=== PATIENT | male | born 1980 | race Caucasian/White ===

== ENCOUNTER 2016-12-24 12:54 | Inpatient (IN) | payer OTHER ==
--- NOTE | 2016-12-24 13:59 | PDOC ---
History of Present Illness - General History Source: Patient Exam Limitations: No Limitations - History of Present Illness Initial Comments: 12/24/16 14:04 The patient is a 36 year old male with significant past medical history of EtOH abuse, alcoholic cirrhosis, recurrent pancreatitis, upper GI bleed, GERD, diabetes, seizure disorder, chronic back pain and hypothyroidism who presents to the ED with intermittent nausea and vomiting for 2 months. Patient notes that he is unable to keep anything down because he vomits it right up. Patient states that he is feeling dizzy and shakytoday. Patient notes that he drinks 1 bottle of vodka per day and his last drink was this morning. Patient states that he was recently admitted to [facility] 04/2016 for alcohol abuse and was in detox. Patient states that he did not drink for 6 months after his discharge and started drinking again in October 2016. Patient admits to being a chronic alcohol drinker. The patient denies chills, cough, SOB, and palpitations. Social History: EtOH abuse <Leanne Houser - Last Filed: 12/24/16 14:06> - General History Source: Patient, Old Records Exam Limitations: No Limitations <Melissa Ho - Last Filed: 12/24/16 15:21> - General Chief Complaint: Weakness Stated Complaint: DIZZINESS Time Seen by Provider: 12/24/16 13:37 Past History <Leanne Houser - Last Filed: 12/24/16 14:06> - Past Medical History Anemia: Yes (no med) Asthma: No Cancer: No Cardiac Disorders: No CVA: No COPD: No CHF: No Dementia: No Diabetes: Yes GI Disorders: Yes (gerd,RUPTURED ULCERS, BANDS) Disorders: No HTN: No Hypercholesterolemia: No Kidney Stones: No Liver Disease: Yes (ALCOHOLISM/ h/o cirrhosis-has had ascites in past , s/p paracentesis) Suicide Attempt (Hx): No Seizures: Yes Thyroid Disease: Yes (h/o hypothyroidism ) - Surgical History Abdominal Surgery: Yes (RUBBER BANDS TO LIVER) Appendectomy: No Cardiac Surgery: No Cholecystectomy: No Lung Surgery: No Neurologic Surgery: No Orthopedic Surgery: No - Reproductive History Testicular Surgery: No - Immunization History Immunization Up to Date: Yes - Psycho/Social/Smoking Cessation Hx Anxiety: No Suicidal Ideation: No Smoking History: Never smoked Have you smoked in the past 12 months: Yes Number of Cigarettes Smoked Daily: 4 If you are a former smoker, when did you quit?: 3 mo ago, when I stop drinking alcohol I start smoking Cigars Per Day: 0 Information on smoking cessation initiated: No 'Breaking Loose' booklet given: 01/27/16 Hx Alcohol Use: Yes (1 hour ago) Drug/Substance Use Hx: No Substance Use Type: None Hx Substance Use Treatment: Yes <Melissa Ho - Last Filed: 12/24/16 15:21> - Past Medical History Allergies/Adverse Reactions: Allergies Allergy/AdvReac Type Severity Reaction Status Date / Time No Known Allergies Allergy Verified 12/24/16 12:57 Home Medications: Ambulatory Orders Amitriptyline HCl [Elavil -] 25 mg PO HS tablet 05/04/16 Folic Acid - 1 mg PO DAILY tablet 05/04/16 Gabapentin [Neurontin -] 600 mg PO TID capsule 05/04/16 Guaifenesin [Robitussin -] 10 ml PO Q6H PRN #0 cup 05/04/16 Levothyroxine [Synthroid -] 25 mcg PO DAILY@0700 tablet 05/04/16 Nadolol [Corgard -] 20 mg PO DAILY tablet 05/04/16 Pantoprazole Sodium [Protonix -] 40 mg PO DAILY tablet.ec 05/04/16 Prednisolone Oral Solution [Orapred (15 mg/5 ml) Oral Solution -] 40 mg PO DAILY bottle 05/04/16 Thiamine HCl [Vitamin B1 -] 100 mg PO DAILY tablet 05/04/16 Review of Systems - Review of Systems Able to Perform ROS?: Yes Comments:: 12/24/16 14:04 GENERAL/CONSTITUTIONAL: No fever or chills. No weakness. HEAD, EYES, EARS, NOSE AND THROAT: No change in vision. No ear pain or discharge. No sore throat. CARDIOVASCULAR: No chest pain or shortness of breath. RESPIRATORY: No cough, wheezing, or hemoptysis. GASTROINTESTINAL: (+)nausea, (+)vomiting. No diarrhea or constipation. GENITOURINARY: No dysuria, frequency, or change in urination. MUSCULOSKELETAL: No joint or muscle swelling or pain. No neck or back pain. SKIN: No rash NEUROLOGIC: No headache, vertigo, loss of consciousness, or change in strength/ sensation. ENDOCRINE: No increased thirst. No abnormal weight change. HEMATOLOGIC/LYMPHATIC: No anemia, easy bleeding, or history of blood clots. ALLERGIC/IMMUNOLOGIC: No hives or skin allergy. <Leanne Houser - Last Filed: 12/24/16 14:06> *Physical Exam - Vital Signs Last Vital Signs Temp Pulse Resp BP Pulse Ox 98.3 F 99 H 18 133/86 95 12/24/16 12:58 12/24/16 12:58 12/24/16 12:58 12/24/16 12:58 12/24/16 12:58 - Physical Exam Comments: 12/24/16 14:05 GENERAL: Awake, alert, and fully oriented, in no acute distress. Non tremulous no tongue fasciculation HEAD: No signs of trauma EYES: (+)Icteric sclera. PERRLA, EOMI, sclera anicteric, conjunctiva clear ENT: Auricles normal inspection, hearing grossly normal, nares patent, oropharynx clear without exudates. Moist mucosa NECK: Normal ROM, supple, no lymphadenopathy, JVD, or masses LUNGS: Breath sounds equal, clear to auscultation bilaterally. No wheezes, and no crackles HEART: Regular rate and rhythm, normal S1 and S2, no murmurs, rubs or gallops ABDOMEN: (+)Mild RUQ tenderness with no guarding or rebound. Soft, normoactive bowel sounds. EXTREMITIES: Normal range of motion, no edema. No clubbing or cyanosis. No cords, erythema, or tenderness NEUROLOGICAL: Cranial nerves II through XII grossly intact. Normal speech, normal gait SKIN: (+)Mild skin jaundice. Warm, Dry, normal turgor, no rashes or lesions noted. <Leanne Houser - Last Filed: 12/24/16 14:06> - Vital Signs Last Vital Signs Temp Pulse Resp BP Pulse Ox 98.3 F 99 H 18 133/86 95 12/24/16 12:58 12/24/16 12:58 12/24/16 12:58 12/24/16 12:58 12/24/16 12:58 <Melissa Ho - Last Filed: 12/24/16 15:21> ED Treatment Course - LABORATORY CBC & Chemistry Diagram: 12/24/16 14:10 12/24/16 14:10 <Melissa Ho - Last Filed: 12/24/16 15:21> Medical Decision Making - Medical Decision Making 12/24/16 13:56 36-year-old male with history of alcohol abuse, alcoholic liver cirrhosis, seizure disorder, alcohol withdrawal, chronic pancreatitis and upper GI bleed secondary to esophageal varices, diabetes presents the emergency department with 2 month history of intermittent nausea and vomiting who is feeling dizzy today as well as yellowing of his skin and eyes. Differential diagnosis includes but is not limited to: Pancreatitis, GERD, peptic ulcer disease, electrolyte abnormality, toxic/metabolic derangement, dehydration, infection, hepatitis, obstructive lesion. Plan: 1. Labs 2. Urine analysis 3. IV fluids for hydration 4. Antiemetics 5. Observe and reevaluate 12/24/16 15:19 Addendum: Labs are reviewed and are noted in the EMR. His lipase is 1200, EtOH level is 295. The plan is to get a right upper quadrant abdominal ultrasound and admit for pancreatitis. <Melissa Ho - Last Filed: 12/24/16 15:21> *DC/Admit/Observation/Transfer - Attestations Scribe Attestion: 12/24/16 14:07 Documentation prepared by JACKELIN Khan, acting as biomedical equipment technician for Melissa Ho MD. <Leanne Houser - Last Filed: 12/24/16 14:06> - Discharge Dispostion Admit: Yes - Attestations Physician Attestion: 12/24/16 13:59 I, Dr. Melissa Ho, attest that the scribes documentation that appears above has been prepared under my direction and personally reviewed by me in its entirety. I confirmed that the note above accurately reflects all work, treatment, procedures, and medical decision-making performed by me. <Melissa Ho - Last Filed: 12/24/16 15:21> Diagnosis at time of Disposition: Nausea & vomiting, Pancreatitis, Alcoholic intoxication - Discharge Dispostion Condition at time of disposition: Stable - Referrals Referrals: Pearl Veliz MD [Primary Care Provider] -
[2016-12-24] MEDS ORDERED: SODIUM CHLORIDE 1,000 ML IV STA (14:00)
[2016-12-24] MEDS ORDERED: ONDANSETRON 4 MG/2 ML VIAL IVPUSH ONE (14:00)
[2016-12-24] MEDS ORDERED: chlordiazePOXIDE HCL 25 MG CAPSULE PO ONE (14:00)
[2016-12-24] MEDS ORDERED: ONDANSETRON 4 MG/2 ML VIAL ONE (14:12)
[2016-12-24] MEDS ORDERED: chlordiazePOXIDE HCL 25 MG CAPSULE ONE (14:12)
[2016-12-24 14:26] LABS: EOSINOPHIL 0.9 % (0-4.5); MCHC 34.9 g/dl (32.0-35.9); MEAN CELL VOLUME 106.2 fl (80-96); MEAN PLT VOLUME 9.1 fl (7.5-11.1); NEUTROPHILS 72.3 % (42.8-82.8); PLATELET COUNT 37 K/MM3 (134-434); RDW 14.5 % (11.9-15.9); WHITE BLOOD COUNT 3.7 K/mm3 (4.0-10.0)
[2016-12-24 14:44] LABS: ALK PHOS 274 U/L (45-117); ANION GAP 15 (8-16); BILIRUBIN,TOTAL 7.8 mg/dL (0.2-1.0); CALCIUM 8.5 mg/dL (8.5-10.1); CO2 29 mmol/L (21-32); COCKROFT - GAULT 100.93; CREATININE 0.9 mg/dL (0.7-1.3); GLUCOSE,RANDOM 90 mg/dL (74-106); PHOSPHOROUS 2.8 mg/dL (2.5-4.9); SGPT/ALT 84 U/L (12-78); TOT PROT 8.7 g/dl (6.4-8.2)
[2016-12-24 14:45] LABS: SGOT/AST 428 U/L (15-37)
[2016-12-24] MEDS ORDERED: LACTATED RINGERS SOLUTION 1,000 ML IV SCH (16:00)
[2016-12-24] MEDS ORDERED: chlordiazePOXIDE HCL 25 MG CAPSULE PO PRN (16:22)
[2016-12-24] MEDS ORDERED: LORAZEPAM CARPU-JECT 2 MG/ML DISP.SYRIN IVPUSH PRN (16:23)
--- NOTE | 2016-12-24 16:25 | HP ---
CHIEF COMPLAINT: Nausea, vomiting, abdominal pain PCP: Dr. Veliz HISTORY OF PRESENT ILLNESS: This is a 36 year old male with PMHx of alcohol abuse, liver cirrhosis, pancreatitis, variceal bleed, GERD, type 2 DM, hypothyroidism, who presented to the ED with abdominal pain, nausea, vomiting x1 month. The patient reports he quit drinking for 6 months after his last admission to [facility] 04/2016. He states he began drinking 1L of vodka a day starting on 10/14/16. He reports for the last month he has not eaten any solid foods 2/2 nausea and vomiting and has only drank juice and vodka. The patient states today he is feeling shaky and decided to come to the ED. He denies any chest pain, palpitations, seizures, headache, syncope, trauma, lower extremity weakness, urinary symptoms. ER course was notable for: (1) Temp 98.3, pulse 99, BP 133/86, resp 18, O2 95% on RA (2) WBC 3.7, Hgb 12.2 (3) Lipase 1227 (4) Total bili 7.8, AST 428, ALT 84, alk phos 274 (5) Abd US (limited): cholelithiasis without ultrasound evidence of acute cholecystitis. No biliary tract dilatation is seen. Hepatic cirrhosis visualized. Small amount of perihepatic ascites is noted Recent Travel: No PAST MEDICAL HISTORY: alcohol abuse, liver cirrhosis, pancreatitis, variceal bleed, GERD, type 2 DM, hypothyroidism Social History: Smoking: None reported Alcohol: 1L of vodka per day Drugs: none reported Family History: None reported Allergies No Known Allergies Allergy (Verified 12/24/16 12:57) HOME MEDICATIONS: Home Medications Medication Instructions Recorded Amitriptyline HCl [Elavil -] 25 mg PO HS tablet 05/04/16 Folic Acid - 1 mg PO DAILY tablet 05/04/16 Gabapentin [Neurontin -] 600 mg PO TID capsule 05/04/16 Guaifenesin [Robitussin -] 10 ml PO Q6H PRN #0 cup 05/04/16 Levothyroxine [Synthroid -] 25 mcg PO DAILY@0700 tablet 05/04/16 Nadolol [Corgard -] 20 mg PO DAILY tablet 05/04/16 Pantoprazole Sodium [Protonix -] 40 mg PO DAILY tablet.ec 05/04/16 Prednisolone Oral Solution 40 mg PO DAILY bottle 05/04/16 [Orapred (15 mg/5 ml) Oral Solution -] Thiamine HCl [Vitamin B1 -] 100 mg PO DAILY tablet 05/04/16 REVIEW OF SYSTEMS CONSTITUTIONAL: Generalized weakness x2 months. Absent: fever, chills, diaphoresis, malaise, loss of appetite, weight change HEENT: Absent: rhinorrhea, nasal congestion, throat pain, throat swelling, difficulty swallowing, mouth swelling, ear pain, eye pain, visual changes CARDIOVASCULAR: Absent: chest pain, syncope, palpitations, irregular heart rate , lightheadedness, peripheral edema RESPIRATORY: Absent: cough, shortness of breath, dyspnea with exertion, orthopnea, wheezing, stridor, hemoptysis GASTROINTESTINAL: Abdominal pain, nausea, vomiting x1 month. Absent: abdominal distension, diarrhea, constipation, melena, hematochezia GENITOURINARY: Absent: dysuria, frequency, urgency, hesitancy, hematuria, flank pain, genital pain MUSCULOSKELETAL: Absent: myalgia, arthralgia, joint swelling, back pain, neck pain SKIN: Absent: rash, itching, pallor HEMATOLOGIC/IMMUNOLOGIC: Absent: easy bleeding, easy bruising, lymphadenopathy, frequent infections ENDOCRINE: Absent: unexplained weight gain, unexplained weight loss, heat intolerance, cold intolerance NEUROLOGIC: Absent: headache, focal weakness or paresthesias, dizziness, unsteady gait, seizure, mental status changes, bladder or bowel incontinence PSYCHIATRIC: Anxiety present since he took his last drink this morning. Absent: depression, suicidal or homicidal ideation, hallucinations. PHYSICAL EXAMINATION GENERAL: Awake, alert, and fully oriented, in no acute distress. HEAD: Normal with no signs of trauma. EYES: Sclera icteric. Pupils equal, round and reactive to light, extraocular movements intact, conjunctiva clear. No lid lag. EARS, NOSE, THROAT: Ears normal, nares patent, oropharynx clear without exudates. Moist mucous membranes. NECK: Normal range of motion, supple without lymphadenopathy, or masses. LUNGS: Breath sounds equal, clear to auscultation bilaterally. No wheezes, and no crackles. No accessory muscle use. HEART: Regular rate and rhythm, normal S1 and S2 without murmur, rub or gallop. ABDOMEN: Soft, epigastric and RUQ tenderness noted. Hepatomegaly noted with non- smooth surface. Non-distended, normoactive bowel sounds MUSCULOSKELETAL: Normal range of motion at all joints. No bony deformities or tenderness. No CVA tenderness. UPPER EXTREMITIES: Petichae noted on b/l upper extremities. 2+ pulses, warm, well-perfused. No cyanosis. No clubbing. No peripheral edema. LOWER EXTREMITIES: 2+ pulses, warm, well-perfused. No calf tenderness. No peripheral edema. NEUROLOGICAL: Tremors on full extension. Cranial nerves II-XII intact. Normal speech. Gait not observed PSYCHIATRIC: Cooperative. Good eye contact. Appropriate mood and affect. SKIN: Jaundice. Warm, dry, normal turgor, no rashes or lesions noted, normal capillary refill. CBCD WBC 3.7 K/mm3 (4.0-10.0) L D 12/24/16 14:10 RBC 3.30 M/mm3 (4.00-5.60) L D 12/24/16 14:10 Hgb 12.2 GM/dL (11.7-16.9) D 12/24/16 14:10 Hct 35.0 % (35.4-49) L D 12/24/16 14:10 MCV 106.2 fl (80-96) H 12/24/16 14:10 MCHC 34.9 g/dl (32.0-35.9) 12/24/16 14:10 RDW 14.5 % (11.9-15.9) 12/24/16 14:10 Plt Count 37 K/MM3 (134-434) L D 12/24/16 14:10 MPV 9.1 fl (7.5-11.1) D 12/24/16 14:10 CMP Sodium 139 mmol/L (136-145) 12/24/16 14:10 Potassium 4.5 mmol/L (3.5-5.1) 12/24/16 14:10 Chloride 95 mmol/L (98-107) L 12/24/16 14:10 Carbon Dioxide 29 mmol/L (21-32) D 12/24/16 14:10 Anion Gap 15 (8-16) 12/24/16 14:10 BUN 8 mg/dL (7-18) D 12/24/16 14:10 Creatinine 0.9 mg/dL (0.7-1.3) 12/24/16 14:10 Creat Clearance w eGFR > 60 (>60) 12/24/16 14:10 Random Glucose 90 mg/dL (74-106) D 12/24/16 14:10 Calcium 8.5 mg/dL (8.5-10.1) 12/24/16 14:10 Total Bilirubin 7.8 mg/dL (0.2-1.0) H D 12/24/16 14:10 AST 428 U/L (15-37) H D 12/24/16 14:10 ALT 84 U/L (12-78) H D 12/24/16 14:10 Alkaline Phosphatase 274 U/L (45-117) H D 12/24/16 14:10 Total Protein 8.7 g/dl (6.4-8.2) H D 12/24/16 14:10 Albumin 4.0 g/dl (3.4-5.0) D 12/24/16 14:10 Laboratory Tests 12/24/16 14:10 Lipase 1227 H Assessment: This is a 36 year old male with PMHx of alcohol abuse, liver cirrhosis, pancreatitis, variceal bleed, GERD, type 2 DM, hypothyroidism, who presented to the ED with abdominal pain, nausea, vomiting x1 month. Plan: 1) GI: Acute pancreatitis - Elevated Lipase - Welch score 0 - Started on LR @150ml/hr - NPO for now - F/u GI consult Liver cirrhosis - Elevated INR - Severe thrombocytopenia, bleeding precautions - Transaminitis, however, total bili down from previous admission 2) Psych: Acute alcohol withdrawal - Start on Librium - Ativan prn for seizures, patient has hx of withdrawal seizures - Continue Thiamine - Continue folic acid 3) Endocrine: DM - NPO for now, BGM q6h - F/u hgb a1c Hypothyroidism - F/u TSH - Continue Synthroid 4) F/E/N: - Monitor electrolytes - NPO 5) Prophylaxis: - SCDs bilaterally - Hold all chemical dvt prophylaxis 2/2 severe thrombocyopenia 6) Dispo: - Requires continued inpatient care CODE STATUS: FULL CODE Visit type - Emergency Visit Emergency Visit: Yes ED Registration Date: 12/24/16 Care time: The patient presented to the Emergency Department on the above date and was hospitalized for further evaluation of their emergent condition. - New Patient This patient is new to me today: Yes Date on this admission: 12/24/16 - Critical Care Critical Care patient: No
[2016-12-24] MEDS ORDERED: morphine CARPU-JECT 2 MG/1 ML DISP.SYRIN IVPUSH ONE (18:20)
[2016-12-24 18:33] VITALS: BMI 21.9
[2016-12-24] MEDS: chlordiazePOXIDE HCL 25 MG CAPSULE PO SCH ×2 (19:30→22:49)
[2016-12-24] MEDS ORDERED: morphine CARPU-JECT 2 MG/1 ML DISP.SYRIN ONE (20:41)
[2016-12-24] MEDS: AMITRIPTYLINE HCL 25 MG TABLET (FP) PO SCH (22:50)
[2016-12-24] MEDS: GABAPENTIN 300 MG CAPSULE (FP) PO SCH (22:51)
[2016-12-25] MEDS ORDERED: DEXTROSE 50%-WATER 50 ML VIAL ONE (01:41)
[2016-12-25] MEDS ORDERED: DEXTROSE 50%-WATER 50 ML VIAL IVPUSH ONE ×2 (02:15→06:45)
[2016-12-25] MEDS: GABAPENTIN 300 MG CAPSULE (FP) PO SCH ×3 (06:29→22:37)
[2016-12-25] MEDS: chlordiazePOXIDE HCL 25 MG CAPSULE PO SCH ×4 (06:29→22:38)
[2016-12-25] MEDS: LEVOTHYROXINE NA 25 MCG TABLET (FP) PO SCH (06:29)
[2016-12-25 06:43] LABS: BASOPHIL 2.5 % (0-2.0); EOSINOPHIL 1.7 % (0-4.5); MCH 37.3 pg (25.7-33.7); MCHC 35.1 g/dl (32.0-35.9); MEAN CELL VOLUME 106.4 fl (80-96); MEAN PLT VOLUME 9.4 fl (7.5-11.1); NEUTROPHILS 72.1 % (42.8-82.8); RDW 14.7 % (11.9-15.9)
[2016-12-25 07:15] LABS: ALBUMIN 3.5 g/dl (3.4-5.0); ANION GAP 13 (8-16); BILIRUBIN,TOTAL 8.1 mg/dL (0.2-1.0); CALCIUM 7.8 mg/dL (8.5-10.1); CO2 26 mmol/L (21-32); COCKROFT - GAULT 129.77; CREATININE 0.7 mg/dL (0.7-1.3); GLUCOSE,RANDOM 60 mg/dL (74-106); MAGNESIUM 1.6 mg/dL (1.8-2.4); PHOSPHOROUS 2.6 mg/dL (2.5-4.9); SGOT/AST 362 U/L (15-37); SGPT/ALT 71 U/L (12-78); TOT PROT 7.5 g/dl (6.4-8.2)
[2016-12-25 07:22] LABS: INR 1.33 (0.82-1.09); PROTHROMBIN TIME (PATIENT) 14.7 SEC (9.98-11.88)
[2016-12-25 07:25] LABS: ALK PHOS 232 U/L (45-117); THYROID STIMULATING HORMONE 2.53 uIU/ml (0.358-3.74)
[2016-12-25 07:33] LABS: PLATELET COUNT 28 K/MM3 (134-434)
[2016-12-25 08:39] LABS: URINE APPEARANCE CLEAR; URINE BLOOD NEGATIVE (NEGATIVE); URINE COLOR AMBER; URINE GLUCOSE (UA) 1+ (NEGATIVE); URINE KETONE 1+ (NEGATIVE); URINE LEUK ESTERASE NEGATIVE (NEGATIVE); URINE NITRITE NEGATIVE (NEGATIVE); URINE UROBILINOGEN 4.0 E.U/dl E.U./dl (0.2-1.0)
[2016-12-25 08:44] LABS: URINE PROTEIN 2+ (NEGATIVE)
[2016-12-25 08:48] LABS: GRANULAR CASTS 1 /lpf; URINE HYALINE CAST 4 /lpf; URINE MUCUS FEW; URINE RBC 1 /hpf (0-3); URINE WBC 1 /hpf (3-5)
[2016-12-25] MEDS ORDERED: LACTATED RINGERS SOLUTION 1,000 ML IV SCH (10:26)
[2016-12-25] MEDS ORDERED: PT OWN MED DRAWER 7, Y5N ONE (10:31)
[2016-12-25] MEDS: PANTOPRAZOLE 40 MG TABLET (FP) PO SCH (10:36)
[2016-12-25] MEDS: THIAMINE HCL 100 MG TABLET (FP) PO SCH (10:36)
[2016-12-25] MEDS: FOLIC ACID 1 MG TABLET (FP) PO SCH (10:36)
[2016-12-25] MEDS ORDERED: MAGNESIUM SULF 50% (8.12 MEQ/2 ML-1 GM VIAL) IVPB ONE (10:45)
--- NOTE | 2016-12-25 11:46 | PN ---
[id number] bedside, he states he is still having nausea. Lipase trending up 1227->4651 Current Medications Generic Name Dose Route Start Last Admin Trade Name Freq PRN Reason Stop Dose Admin Amitriptyline HCl 25 mg 12/24/16 22:00 12/24/16 22:50 Elavil - PO 25 mg HS ZEYNEP Administration Chlordiazepoxide HCl 25 mg 12/24/16 16:22 Librium - PO 12/27/16 16:21 Q4H PRN WITHDRAWAL(CONT SUBST) Chlordiazepoxide HCl 25 mg 12/25/16 17:00 Librium - PO 12/26/16 11:01 [id number] ZEYNEP Chlordiazepoxide HCl 15 mg 12/26/16 17:00 Librium - PO 12/27/16 11:01 [id number] ZEYNEP Folic Acid 1 mg 12/25/16 10:00 12/25/16 10:36 Folic Acid - PO 1 mg DAILY ZEYNEP Administration Gabapentin 600 mg 12/24/16 22:00 12/25/16 06:29 Neurontin - PO 600 mg TID ZEYNEP Administration Lactated Ringer's 1,000 mls @ 200 mls/hr 12/25/16 10:26 12/25/16 11:13 Lactated Ringers Solution IV 200 mls/hr ASDIR ZEYNEP Administration Levothyroxine Sodium 25 mcg 12/25/16 07:00 12/25/16 06:29 Synthroid - PO 25 mcg DAILY@0700 ZEYNEP Administration Lorazepam 1 mg 12/24/16 16:23 Ativan Injection - IVPUSH TID PRN WITHDRAWAL(CONT SUBST) Nadolol 20 mg 12/25/16 10:00 Corgard - PO DAILY ZEYNEP Pantoprazole Sodium 40 mg 12/25/16 10:00 12/25/16 10:36 Protonix - PO 40 mg DAILY ZEYNEP Administration Thiamine HCl 100 mg 12/25/16 10:00 12/25/16 10:36 Vitamin B1 - PO 100 mg DAILY ZEYNEP Administration Objective: Vital Signs Period Temp Pulse Resp BP Sys/Reich Pulse Ox Last 24 Hr 98 F-98.9 F 80-99 16-20 98-133/61-86 94-98 Physical Exam: GENERAL: Awake, alert, and fully oriented, in no acute distress. HEAD: Normal with no signs of trauma. EYES: Sclera icteric. Pupils equal, round and reactive to light, extraocular movements intact, conjunctiva clear. No lid lag. EARS, NOSE, THROAT: Ears normal, nares patent, oropharynx clear without exudates. Moist mucous membranes. NECK: Normal range of motion, supple without lymphadenopathy, or masses. LUNGS: Breath sounds equal, clear to auscultation bilaterally. No wheezes, and no crackles. No accessory muscle use. HEART: Regular rate and rhythm, normal S1 and S2 without murmur, rub or gallop. ABDOMEN: Soft, epigastric and RUQ tenderness noted. Hepatomegaly noted with non- smooth surface. Non-distended, normoactive bowel sounds MUSCULOSKELETAL: Normal range of motion at all joints. No bony deformities or tenderness. No CVA tenderness. UPPER EXTREMITIES: Petichae noted on b/l upper extremities. 2+ pulses, warm, well-perfused. No cyanosis. No clubbing. No peripheral edema. LOWER EXTREMITIES: 2+ pulses, warm, well-perfused. No calf tenderness. No peripheral edema. NEUROLOGICAL: Tremors on full extension. Cranial nerves II-XII intact. Normal speech. Gait not observed PSYCHIATRIC: Cooperative. Good eye contact. Appropriate mood and affect. SKIN: Jaundice. Warm, dry, normal turgor, no rashes or lesions noted, normal capillary refill. CBCD WBC 3.0 K/mm3 (4.0-10.0) L 12/25/16 05:40 RBC 3.07 M/mm3 (4.00-5.60) L 12/25/16 05:40 Hgb 11.5 GM/dL (11.7-16.9) L 12/25/16 05:40 Hct 32.7 % (35.4-49) L 12/25/16 05:40 MCV 106.4 fl (80-96) H 12/25/16 05:40 MCHC 35.1 g/dl (32.0-35.9) 12/25/16 05:40 RDW 14.7 % (11.9-15.9) 12/25/16 05:40 Plt Count 28 K/MM3 (134-434) L* D 12/25/16 05:40 MPV 9.4 fl (7.5-11.1) 12/25/16 05:40 CMP Sodium 138 mmol/L (136-145) 12/25/16 05:40 Potassium 3.5 mmol/L (3.5-5.1) D 12/25/16 05:40 Chloride 99 mmol/L (98-107) 12/25/16 05:40 Carbon Dioxide 26 mmol/L (21-32) 12/25/16 05:40 Anion Gap 13 (8-16) 12/25/16 05:40 BUN 10 mg/dL (7-18) D 12/25/16 05:40 Creatinine 0.7 mg/dL (0.7-1.3) D 12/25/16 05:40 Creat Clearance w eGFR > 60 (>60) 12/25/16 05:40 Random Glucose 60 mg/dL (74-106) L D 12/25/16 05:40 Calcium 7.8 mg/dL (8.5-10.1) L 12/25/16 05:40 Total Bilirubin 8.1 mg/dL (0.2-1.0) H 12/25/16 05:40 AST 362 U/L (15-37) H 12/25/16 05:40 ALT 71 U/L (12-78) 12/25/16 05:40 Alkaline Phosphatase 232 U/L (45-117) H 12/25/16 05:40 Total Protein 7.5 g/dl (6.4-8.2) 12/25/16 05:40 Albumin 3.5 g/dl (3.4-5.0) 12/25/16 05:40 Laboratory Tests 12/24/16 12/25/16 14:10 05:40 Lipase 1227 H 4658 H Assessment: This is a 36 year old male with PMHx of alcohol abuse, liver cirrhosis, pancreatitis, variceal bleed, GERD, type 2 DM, hypothyroidism, who presented to the ED with abdominal pain, nausea, vomiting x1 month. Plan: 1) GI: Acute pancreatitis - Lipase trending up - Increase LR to @200ml/hr - NPO for now, patient remains nauseous - F/u GI consult Liver cirrhosis - Elevated INR - Severe thrombocytopenia, bleeding precautions, no signs of active bleeding ( drop in Hgb likely hemodilutional) - Transaminitis, however, total bili down from previous admission 2) Psych: Acute alcohol withdrawal - Continue Librium - Ativan prn for seizures, patient has hx of withdrawal seizures - Continue Thiamine - Continue folic acid 3) Endocrine: DM - NPO for now, BGM q6h - Received D50 overnight x2 for BGM 60 - Hgb A1c 4.9 Hypothyroidism - TSH 2.53 - Continue Synthroid 4) F/E/N: - Monitor electrolytes - Hypomagnesemia: replete - NPO 5) Prophylaxis: - SCDs bilaterally - Hold all chemical dvt prophylaxis 2/2 severe thrombocyopenia - PT evaluation 6) Dispo: - Requires continued inpatient care CODE STATUS: FULL CODE Visit type - Emergency Visit Emergency Visit: Yes ED Registration Date: 12/24/16 Care time: The patient presented to the Emergency Department on the above date and was hospitalized for further evaluation of their emergent condition. - New Patient This patient is new to me today: No - Critical Care Critical Care patient: No
[2016-12-25] MEDS: NADOLOL 20 MG TABLET (FP) PO SCH (12:00)
--- NOTE | 2016-12-25 12:27 | CON.GI ---
Consult Consult Specialty:: Gastroenterology Referred by:: Mary Butler NP Reason for Consultation:: Pancreatitis - History of Present Illness Chief Complaint: Weakness and inability to eat due to abdominal pain and vomiting. History of Present Illness: 36M with history of alcohol abuse since age 12. He had severe jaundice with bilirubin as high as 20 when last hospitalized here in 04/22. He was given prednisolone by my associate Dr Bennett. An MRI suggested a focus of hepatocellular carcinoma. His AFP was normal. He was referred to [facility] where he describes having repeat banding of varices and where he was told that they wanted to place an intrahepatic port for chemotherapy. He failed o followup as he resumed daily vodka abuse in 10/21 and has not followed up there. He had EGD with banding of esophageal varices for a UGI bleed here in 01/[address] Kaitlynn Lord. He has ascites requiring paracenteses , variceal bleeding and thrombocytopenia and propensity to hypoglycemia. He is now diabetic. Sonogram reveals gallstones but no ductal dilation. - History Source History Provided By: Patient Limitations to Obtaining History: Poor Historian - Past Medical History BODY FORMER: Yes: Seizure. No: Alzheimer's, CVA, Dementia, Migraine, Multiple Sclerosis , Peripheral Neuropathy, Parkinson's, Syncope, TIA, Vertigo, Other Gastrointestinal: Yes: Ascites, Esophageal Varices (with bleeding in 01/20. Has had at least 2 bandings since then), GERD, Pancreatitis Hepatobiliary: Yes: Cirrhosis (d/t alcohol now with suspected hepatocellular carcinoma), Cholelithiasis Heme/Onc: Yes: Thrombocytopenia Psych: Yes: Other (ETOH abuse) Musculoskeletal: Yes: Other (arthralgias) Endocrine: Yes: Diabetes Mellitus, Hypothyroidism - Past Surgical History Past Surgical History: Yes: None, Upper Endoscopy (w/ banding of esoph varices at [facility] 2 mos ago) - Alcohol/Substance Use Hx Alcohol Use: Yes (daily vodka, last yesterday AM) History of Substance Use: reports: None - Smoking History Smoking history: Current some day smoker Have you smoked in the past 12 months: Yes Aproximately how many cigarettes per day: 4 - Social History Usual Living Arrangement: With Parent ADL: Independent 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 Place of : [place] History of Recent Travel: No Home Medications - Allergies Allergies/Adverse Reactions: Allergies Allergy/AdvReac Type Severity Reaction Status Date / Time No Known Allergies Allergy Verified 12/24/16 12:57 - Home Medications Home Medications: Ambulatory Orders Amitriptyline HCl [Elavil -] 25 mg PO HS tablet 05/04/16 Folic Acid - 1 mg PO DAILY tablet 05/04/16 Gabapentin [Neurontin -] 600 mg PO TID capsule 05/04/16 Levothyroxine [Synthroid -] 25 mcg PO DAILY@0700 tablet 05/04/16 Nadolol [Corgard -] 20 mg PO DAILY tablet 05/04/16 Pantoprazole Sodium [Protonix -] 40 mg PO DAILY tablet.ec 05/04/16 Metformin HCl [Metformin HCl ER] 500 mg PO HS 12/24/16 Oxycodone HCl 5 mg PO ASDIR PRN 12/24/16 Family Disease History - Family Disease History Family Disease History: Diabetes: Father (alcohol), Other: Father, Mother (htn) , Brother (alcohol) Review of Systems - Review of Systems Constitutional: reports: Lethargy, Loss of Appetite, Malaise, Unintentional Wgt. Loss, Weakness Eyes: reports: Double Vision HENT: reports: No Symptoms Neck: reports: Pain on Movement Cardiovascular: reports: No Symptoms Respiratory: reports: SOB on Exertion Gastrointestinal: reports: Abdominal Pain, Bloating, Nausea, Vomiting Genitourinary: reports: No Symptoms Musculoskeletal: reports: Joint Pain, Muscle Weakness Integumentary: reports: No Symptoms Neurological: reports: Dizziness, Incoordination, Tremors, Unsteady Gait, Weakness Endocrine: reports: Increased Thirst Hematology/Lymphatic: reports: Easily Bruised Psychiatric: reports: Anxiety Physical Exam-GI Vital Signs: Vital Signs Temperature 98.9 F 12/25/16 06:00 Pulse Rate 95 H 12/25/16 06:00 Respiratory Rate 12/25/16 06:00 Blood Pressure 116/70 12/25/16 06:00 O2 Sat by Pulse Oximetry (%) 94 L 12/24/16 21:00 Current Medications Generic Name Dose Route Start Last Admin Trade Name Freq PRN Reason Stop Dose Admin Amitriptyline HCl 25 mg 12/24/16 22:00 12/24/16 22:50 Elavil - PO 25 mg HS ZEYNEP Administration Chlordiazepoxide HCl 25 mg 12/24/16 16:22 Librium - PO 12/27/16 16:21 Q4H PRN WITHDRAWAL(CONT SUBST) Chlordiazepoxide HCl 25 mg 12/25/16 17:00 Librium - PO 12/26/16 11:01 [id number] ZEYNEP Chlordiazepoxide HCl 15 mg 12/26/16 17:00 Librium - PO 12/27/16 11:01 [id number] ZEYNEP Folic Acid 1 mg 12/25/16 10:00 12/25/16 10:36 Folic Acid - PO 1 mg DAILY ZEYNEP Administration Gabapentin 600 mg 12/24/16 22:00 12/25/16 06:29 Neurontin - PO 600 mg TID ZEYNEP Administration Lactated Ringer's 1,000 mls @ 200 mls/hr 12/25/16 10:26 12/25/16 11:13 Lactated Ringers Solution IV 200 mls/hr ASDIR ZEYNEP Administration Levothyroxine Sodium 25 mcg 12/25/16 07:00 12/25/16 06:29 Synthroid - PO 25 mcg DAILY@0700 ZEYNEP Administration Lorazepam 1 mg 12/24/16 16:23 Ativan Injection - IVPUSH TID PRN WITHDRAWAL(CONT SUBST) Nadolol 20 mg 12/25/16 10:00 Corgard - PO DAILY ZEYNEP Pantoprazole Sodium 40 mg 12/25/16 10:00 12/25/16 10:36 Protonix - PO 40 mg DAILY ZEYNEP Administration Thiamine HCl 100 mg 12/25/16 10:00 12/25/16 10:36 Vitamin B1 - PO 100 mg DAILY ZEYNEP Administration CBC,CMP WBC 3.0 K/mm3 (4.0-10.0) L 12/25/16 05:40 RBC 3.07 M/mm3 (4.00-5.60) L 12/25/16 05:40 Hgb 11.5 GM/dL (11.7-16.9) L 12/25/16 05:40 Hct 32.7 % (35.4-49) L 12/25/16 05:40 MCV 106.4 fl (80-96) H 12/25/16 05:40 MCHC 35.1 g/dl (32.0-35.9) 12/25/16 05:40 RDW 14.7 % (11.9-15.9) 12/25/16 05:40 Plt Count 28 K/MM3 (134-434) L* D 12/25/16 05:40 MPV 9.4 fl (7.5-11.1) 12/25/16 05:40 Neutrophils % 72.1 % (42.8-82.8) 12/25/16 05:40 Lymphocytes % 15.8 % (8-40) 12/25/16 05:40 Monocytes % 7.9 % (3.8-10.2) 12/25/16 05:40 Eosinophils % 1.7 % (0-4.5) D 12/25/16 05:40 Basophils % 2.5 % (0-2.0) H 12/25/16 05:40 Basophilic Stippling 1+ 12/24/16 14:10 Macrocytosis 3+ 12/24/16 14:10 Sodium 138 mmol/L (136-145) 12/25/16 05:40 Potassium 3.5 mmol/L (3.5-5.1) D 12/25/16 05:40 Chloride 99 mmol/L (98-107) 12/25/16 05:40 Carbon Dioxide 26 mmol/L (21-32) 12/25/16 05:40 Anion Gap 13 (8-16) 12/25/16 05:40 BUN 10 mg/dL (7-18) D 12/25/16 05:40 Creatinine 0.7 mg/dL (0.7-1.3) D 12/25/16 05:40 Creat Clearance w eGFR > 60 (>60) 12/25/16 05:40 POC Glucometer 75 UNITS (()) 12/25/16 11:15 Random Glucose 60 mg/dL (74-106) L D 12/25/16 05:40 Hemoglobin A1c % 4.9 % (4.8-6.0) 12/25/16 05:40 Calcium 7.8 mg/dL (8.5-10.1) L 12/25/16 05:40 Phosphorus 2.6 mg/dL (2.5-4.9) 12/25/16 05:40 Magnesium 1.6 mg/dL (1.8-2.4) L 12/25/16 05:40 Total Bilirubin 8.1 mg/dL (0.2-1.0) H 12/25/16 05:40 AST 362 U/L (15-37) H 12/25/16 05:40 ALT 71 U/L (12-78) 12/25/16 05:40 Alkaline Phosphatase 232 U/L (45-117) H 12/25/16 05:40 Total Protein 7.5 g/dl (6.4-8.2) 12/25/16 05:40 Albumin 3.5 g/dl (3.4-5.0) 12/25/16 05:40 Lipase 4658 U/L (73-393) H 12/25/16 05:40 TSH 2.53 uIU/ml (0.358-3.74) D 12/25/16 05:40 Constitutional: Yes: Anxious Eyes: Yes: Sclera Icterus HENT: Yes: Atraumatic Neck: Yes: Supple Cardiovascular: Yes: Regular Rate and Rhythm Respiratory: Yes: CTA Bilaterally Gastrointestinal Inspection: Yes: Other (symmetrical and not distended) ...Palpate: Yes: Soft, Other (nontender) ...Rectal Exam: Yes: Guaiac Negative (brown stool), Other (1+ prostate) Genitourinary: Yes: Other (normal testicles, no hernias) Edema: No Neurological: Yes: Alert, Tremors, Unsteady Gait Labs: CBC, BMP 12/25/16 05:40 12/25/16 05:40 INR, PTT INR 1.33 (0.82-1.09) H 12/25/16 05:40 Imaging - Results Ultrasound: Image Reviewed (gallstones, no ductal dilation) Problem List - Problems (1) Esophageal varices determined by endoscopy Code(s): I85.00 - ESOPHAGEAL VARICES WITHOUT BLEEDING (2) Thrombocytopenia Code(s): D69.6 - THROMBOCYTOPENIA, UNSPECIFIED (3) HCC (hepatocellular carcinoma) Code(s): C22.0 - LIVER CELL CARCINOMA (4) Ascites due to alcoholic cirrhosis Code(s): K70.31 - ALCOHOLIC CIRRHOSIS OF LIVER WITH ASCITES Assessment/Plan The patient has advanced alcoholic cirrhosis complicated by ascites, bleeding varices, thrombocytopenia, coagulopathy, hypoglycemia and now as yet to be confirmed hepatocellular carcinoma. His bilirubin is rising and he may come to need another course of prednisolone for acute and chronic alcohol hepatitis. I have explained to him to how gravely ill he is. Once stabilized attempts will be made to reconnect him with [facility] but I have emphasized the critical need to absolutely abstain from alcohol and to become reliably compliant with medical care . His parents are present. He has a daughter who lives with his estranged . Given his hunger and resolution of pain and vomiting his alcoholic pancreatitis appears to have resolved and I will advance his diet. Receiving Librium for D.Ts. Fortunately no bleeding and the sonogram reveals minimal ascites. Not encephalopathic but appears to have cerebellar injury. Would consider neurological evaluation. Will repeat MRI and AFP. Prognosis is grim.
--- NOTE | 2016-12-25 14:33 | CON.NEURO ---
Consult Consult Specialty:: Neurology Reason for Consultation:: gait dysfunction - History of Present Illness History of Present Illness: This is a 36 year old male with PMHx of alcohol abuse, liver cirrhosis, pancreatitis, variceal bleed, GERD, type 2 DM, hypothyroidism, who presented to the ED with abdominal pain, nausea, vomiting x1 month. The patient reports he quit drinking for 6 months after his last admission to [facility] 04/2016. He states he began drinking 1L of vodka a day starting on 10/14/16. He reports for the last month he has not eaten any solid foods 2/2 nausea and vomiting and has only drank juice and vodka. The patient states today he is feeling shaky and decided to come to the ED. He denies any visual symptoms, seizures, headache, syncope, trauma, lower extremity weakness, urinary symptoms. He is on gabapentin 600 mg tid and Morphine sulfate ; he denies any other drug abuse . 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 Has had at least 2 bandings since then), GERD, Pancreatitis Hepatobiliary: Yes: Cirrhosis (d/t alcohol now with suspected hepatocellular carcinoma), Cholelithiasis Musculoskeletal: Yes: Other (arthralgias) Endocrine: Yes: Diabetes Mellitus, Hypothyroidism - Past Surgical History Past Surgical History: Yes: None, Upper Endoscopy (w/ banding of esoph varices at [facility] 2 mos ago) - Alcohol/Substance Use Hx Alcohol Use: Yes (daily vodka, last yesterday AM) History of Substance Use: reports: None - Smoking History Smoking history: Current some day smoker Have you smoked in the past 12 months: Yes Aproximately how many cigarettes per day: 4 If you are a former smoker, when did you quit?: 3 mo ago, when I stop drinking alcohol I start smoking - Social History Usual Living Arrangement: With Parent ADL: Independent 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 Home Medications - Allergies Allergies/Adverse Reactions: Allergies Allergy/AdvReac Type Severity Reaction Status Date / Time No Known Allergies Allergy Verified 12/24/16 12:57 - Home Medications Home Medications: Ambulatory Orders Amitriptyline HCl [Elavil -] 25 mg PO HS tablet 05/04/16 Folic Acid - 1 mg PO DAILY tablet 05/04/16 Gabapentin [Neurontin -] 600 mg PO TID capsule 05/04/16 Levothyroxine [Synthroid -] 25 mcg PO DAILY@0700 tablet 05/04/16 Nadolol [Corgard -] 20 mg PO DAILY tablet 05/04/16 Pantoprazole Sodium [Protonix -] 40 mg PO DAILY tablet.ec 05/04/16 Metformin HCl [Metformin HCl ER] 500 mg PO HS 12/24/16 Oxycodone HCl 5 mg PO ASDIR PRN 12/24/16 Family Disease History - Family Disease History Family Disease History: Diabetes: Father (alcohol), Other: Father, Mother (htn) , Brother (alcohol) Review of Systems - Review of Systems Constitutional: reports: Loss of Appetite, Other (All 14 organs reviewed and negative beside HPI.) Physical Exam-Neuro Vital Signs: Vital Signs Temperature 98.9 F 12/25/16 10:00 Pulse Rate 100 H 12/25/16 10:00 Respiratory Rate 18 12/25/16 10:00 Blood Pressure 126/74 12/25/16 10:00 O2 Sat by Pulse Oximetry (%) 94 L 12/24/16 21:00 Constitutional: Yes: Calm, Cachectic Neck: Yes: Supple Cardiovascular: Yes: WNL Respiratory: Yes: WNL, CTA Bilaterally Musculoskeletal: Yes: WNL Edema: No Labs: CBC, BMP 12/25/16 05:40 12/25/16 05:40 INR, PTT INR 1.33 (0.82-1.09) H 12/25/16 05:40 - Neuro Exam Level Of Consciousness: Yes: Oriented to Person, Oriented to Place, Oriented to Time Eyes: Yes: PERRLA (Mildly dialted b/l but symmetric.) Speech: WNL Cranial Nerves II-XII Intact: Yes Gag: Present DTR's: 1+ Left Bicep, 1+ Right Bicep, 1+ Left Tricep, 1+ Right Tricep, 1+ Left Brachioradialis, 1+ Right Brachioradialis, 1+ Left Achilles, 1+ Right Achilles Babinski: Absent Response to light touch: Normal Coordination: Normal: Finger to Nose, Heel to [place] Motor Strength: 4/5: Left Arm, Right Arm, Left Leg, Right Leg (Mild difuse weakness) Gait: Other (Imbalance , tandem gait impaired, romberg -ve ; . ) NIH Stroke Scale - Total Score NIH Stroke Scale Score: 0 Assessment/Plan 36 y/o w h/o heavy alcohol abuser, Alcoholic cirrhosis , DM, p/w gait dysfunction , nausea and vomiting and gait dysfunction . On exam today , no focal weakness , but gait unsteady and impaired tandem gait; FN and HS are intact . Gait dysfunction due to toxic / alcoholic/ diabetic neuropathy vs less likely cerebellar. Alcohol withdrawal , watch for DT Thrombocytopenia -MRI/A brain to exclude central cause -MRA neck -Neuropathy w/u including vit B12, Vit D , TSH, SPEP, testosterone , A1C -EMG as op -PT -fall precautions - DT protocol -C/w Thiamin -c/w gabapentin Health maintenance per primary team. Thank you for allowing us to participate in the care of this patient. Orlando Dubois M.D. [phone]
[2016-12-25] MEDS: AMITRIPTYLINE HCL 25 MG TABLET (FP) PO SCH (22:37)
[2016-12-26] MEDS: LEVOTHYROXINE NA 25 MCG TABLET (FP) PO SCH (06:35)
[2016-12-26] MEDS: chlordiazePOXIDE HCL 25 MG CAPSULE PO SCH ×2 (06:35→11:26)
[2016-12-26] MEDS: GABAPENTIN 300 MG CAPSULE (FP) PO SCH ×3 (06:35→21:48)
[2016-12-26 07:46] LABS: BASOPHIL 1.4 % (0-2.0); EOSINOPHIL 2.1 % (0-4.5); MCH 37.5 pg (25.7-33.7); MCHC 34.9 g/dl (32.0-35.9); MEAN CELL VOLUME 107.6 fl (80-96); NEUTROPHILS 72.5 % (42.8-82.8); RDW 14.6 % (11.9-15.9); WHITE BLOOD COUNT 3.8 K/mm3 (4.0-10.0)
[2016-12-26 08:11] LABS: ALBUMIN 3.5 g/dl (3.4-5.0); ANION GAP 12 (8-16); CALCIUM 8.8 mg/dL (8.5-10.1); CO2 28 mmol/L (21-32); GLUCOSE,RANDOM 87 mg/dL (74-106); MAGNESIUM 1.8 mg/dL (1.8-2.4); SGOT/AST 348 U/L (15-37)
[2016-12-26 08:18] LABS: PLATELET COUNT 34 K/MM3 (134-434)
[2016-12-26 08:21] LABS: INR 1.46 (0.82-1.09); PROTHROMBIN TIME (PATIENT) 16.2 SEC (9.98-11.88)
[2016-12-26 08:40] LABS: ALK PHOS 257 U/L (45-117); BILIRUBIN,DIRECT 7.7 mg/dL (0.0-0.2); BILIRUBIN,TOTAL 11.4 mg/dL (0.2-1.0); C-REACTIVE PROTEIN 2.5 MG/DL (0.00-0.3); COCKROFT - GAULT 90.84; SGPT/ALT 68 U/L (12-78); TOT PROT 7.7 g/dl (6.4-8.2)
[2016-12-26] MEDS ORDERED: LACTULOSE 20 GM/30 ML UDC (FOR ORAL USE ONLY) PO ONE (09:30)
--- NOTE | 2016-12-26 10:59 | PN ---
Progress Note (short form) - Note Progress Note: Subjective: The patient was seen and examined at the bedside, he reports feeling good, denies nausea or vomiting. He states he had 1x diarrhea this AM ( non bloody) Current Medications Generic Name Dose Route Start Last Admin Trade Name Freq PRN Reason Stop Dose Admin Amitriptyline HCl 25 mg 12/24/16 22:00 12/25/16 22:37 Elavil - PO 25 mg HS ZEYNEP Administration Chlordiazepoxide HCl 25 mg 12/24/16 16:22 12/25/16 13:37 Librium - PO 12/27/16 16:21 25 mg Q4H PRN Administration WITHDRAWAL(CONT SUBST) Chlordiazepoxide HCl 25 mg 12/25/16 17:00 12/26/16 06:35 Librium - PO 12/26/16 11:01 25 mg [id number] ZEYNEP Administration Chlordiazepoxide HCl 15 mg 12/26/16 17:00 Librium - PO 12/27/16 11:01 [id number] ZEYNEP Folic Acid 1 mg 12/25/16 10:00 12/25/16 10:36 Folic Acid - PO 1 mg DAILY ZEYNEP Administration Gabapentin 600 mg 12/24/16 22:00 12/26/16 06:35 Neurontin - PO 600 mg TID ZEYNEP Administration Levothyroxine Sodium 25 mcg 12/25/16 07:00 12/26/16 06:35 Synthroid - PO 25 mcg DAILY@0700 ZEYNEP Administration Lorazepam 1 mg 12/24/16 16:23 Ativan Injection - IVPUSH TID PRN WITHDRAWAL(CONT SUBST) Nadolol 20 mg 12/25/16 10:00 12/25/16 12:00 Corgard - PO 20 mg DAILY ZEYNEP Administration Pantoprazole Sodium 40 mg 12/25/16 10:00 12/25/16 10:36 Protonix - PO 40 mg DAILY ZEYNEP Administration Thiamine HCl 100 mg 12/25/16 10:00 12/25/16 10:36 Vitamin B1 - PO 100 mg DAILY ZEYNEP Administration Objective: Vital Signs Period Temp Pulse Resp BP Sys/Reich Pulse Ox Last 24 Hr 97.6 F-98.9 F 65-104 18-65 120-128/72-82 90 Physical Exam: GENERAL: Awake, alert, and fully oriented, in no acute distress. HEAD: Normal with no signs of trauma. EYES: Sclera icteric. Pupils equal, round and reactive to light, extraocular movements intact, conjunctiva clear. No lid lag. LUNGS: Breath sounds equal, clear to auscultation bilaterally. No wheezes, and no crackles. No accessory muscle use. HEART: Regular rate and rhythm, normal S1 and S2 without murmur, rub or gallop. ABDOMEN: Soft, epigastric and RUQ tenderness noted. Hepatomegaly noted with non- smooth surface. Non-distended, normoactive bowel sounds MUSCULOSKELETAL: Normal range of motion at all joints. No bony deformities or tenderness. No CVA tenderness. UPPER EXTREMITIES: Petichae noted on b/l upper extremities. 2+ pulses, warm, well-perfused. No cyanosis. No clubbing. No peripheral edema. LOWER EXTREMITIES: 2+ pulses, warm, well-perfused. No calf tenderness. No peripheral edema. NEUROLOGICAL: Tremors on full extension. Cranial nerves II-XII intact. Normal speech. Gait not observed PSYCHIATRIC: Cooperative. Good eye contact. Appropriate mood and affect. SKIN: Jaundice. Warm, dry, normal turgor, no rashes or lesions noted, normal capillary refill. CBCD WBC 3.8 K/mm3 (4.0-10.0) L 12/26/16 06:47 RBC 3.23 M/mm3 (4.00-5.60) L 12/26/16 06:47 Hgb 12.1 GM/dL (11.7-16.9) 12/26/16 06:47 Hct 34.8 % (35.4-49) L 12/26/16 06:47 MCV 107.6 fl (80-96) H 12/26/16 06:47 MCHC 34.9 g/dl (32.0-35.9) 12/26/16 06:47 RDW 14.6 % (11.9-15.9) 12/26/16 06:47 Plt Count 34 K/MM3 (134-434) L* D 12/26/16 06:47 MPV 9.0 fl (7.5-11.1) 12/26/16 06:47 CMP Sodium 139 mmol/L (136-145) 12/26/16 06:47 Potassium 3.8 mmol/L (3.5-5.1) 12/26/16 06:47 Chloride 99 mmol/L (98-107) 12/26/16 06:47 Carbon Dioxide 28 mmol/L (21-32) 12/26/16 06:47 Anion Gap 12 (8-16) 12/26/16 06:47 BUN 10 mg/dL (7-18) 12/26/16 06:47 Creatinine 1.0 mg/dL (0.7-1.3) D 12/26/16 06:47 Creat Clearance w eGFR > 60 (>60) 12/26/16 06:47 Random Glucose 87 mg/dL (74-106) D 12/26/16 06:47 Calcium 8.8 mg/dL (8.5-10.1) 12/26/16 06:47 Total Bilirubin 11.4 mg/dL (0.2-1.0) H D 12/26/16 06:47 AST 348 U/L (15-37) H 12/26/16 06:47 ALT 68 U/L (12-78) 12/26/16 06:47 Alkaline Phosphatase 257 U/L (45-117) H 12/26/16 06:47 Total Protein 7.7 g/dl (6.4-8.2) 12/26/16 06:47 Albumin 3.5 g/dl (3.4-5.0) 12/26/16 06:47 Imaging: Chest X-ray: No acute pathology Abdominal US: Cholelithiasis without sonographic evidence of acute cholecystitis. No biliary dilatation. Hepatic cirrhosis visualized. MRI brain: Few foci of small vessel infarction in the periventricular white matter. Right basal ganglia with a small porencephalic cysts of the lateral aspect of the bodies of the later ventricles MRA brain: Unremarkable MRA of the proximal arterial intracranial circulation MRCP: Cirrhotic liver, splenomegaly. No hapatoma noted. Mild to moderate left pleural effusion. Cholelithiasis with small [place] of pericholecystic fluid. No pancreaticobiliary ductal dilatation seen. Nonspecific heterogeneity of the pancreatic uncinate process but with no focal lesion or abnormal enhancement. Questionable short segmental thickening of the ascending colon. Assessment: This is a 36 year old male with PMHx of alcohol abuse, liver cirrhosis, pancreatitis, variceal bleed, GERD, type 2 DM, hypothyroidism, who presented to the ED with abdominal pain, nausea, vomiting x1 month. Plan: 1) GI: Acute alcoholic pancreatitis - Tolerating diet well - Discontinued fluids (mild to moderate left pleural effusion) - Appreciate GI consult Liver cirrhosis - Mildly elevated ammonia level. Will order Lactulose - Elevated INR - Severe thrombocytopenia, bleeding precautions, no signs of active bleeding ( drop in Hgb likely hemodilutional) - Transaminitis - Total bilirubin trending up - AFP pending - Will need to get reconnected with supervisor riprap placing at [facility] upon discharge for surveillance and monitoring of liver cirrhosis 2) Psych: Acute alcohol withdrawal - Continue Librium - Ativan prn for seizures, patient has hx of withdrawal seizures - Continue Thiamine - Continue folic acid 3) Endocrine: DM - BGM ACHS - Hgb A1c 4.9 Hypothyroidism - TSH 2.53 - Continue Synthroid 4) F/E/N: - Monitor electrolytes - Hypomagnesemia: resolved - Sodium controlled diet 5) Prophylaxis: - SCDs bilaterally - Hold all chemical dvt prophylaxis 2/2 severe thrombocyopenia - PT evaluation - Per neuro: gait disturbance 2/2 toxic/alcoholic/diabetic neuropathy and less likely cerebellar 6) Dispo: - Requires continued inpatient care CODE STATUS: FULL CODE Visit type - Emergency Visit Emergency Visit: Yes ED Registration Date: 12/24/16 Care time: The patient presented to the Emergency Department on the above date and was hospitalized for further evaluation of their emergent condition. - New Patient This patient is new to me today: No - Critical Care Critical Care patient: No
[2016-12-26] MEDS: THIAMINE HCL 100 MG TABLET (FP) PO SCH (11:25)
[2016-12-26] MEDS: PANTOPRAZOLE 40 MG TABLET (FP) PO SCH (11:26)
[2016-12-26] MEDS: FOLIC ACID 1 MG TABLET (FP) PO SCH (11:26)
[2016-12-26] MEDS ORDERED: PT OWN MED DRAWER 7, Y5N ONE (11:27)
[2016-12-26] MEDS: NADOLOL 20 MG TABLET (FP) PO SCH (11:27)
[2016-12-26] MEDS: chlordiazePOXIDE 5 MG CAPSULE PO SCH ×2 (16:49→22:24)
--- NOTE | 2016-12-26 19:40 | PN ---
Progress Note (short form) - Note Progress Note: HPI : 36 year old male with PMHx of alcohol abuse, liver cirrhosis, pancreatitis , variceal bleed, GERD, type 2 DM, hypothyroidism, who presented to the ED with abdominal pain, nausea, vomiting x1 month. The patient reports he quit drinking for 6 months after his last admission to [facility] 04/2016. He states he began drinking 1L of vodka a day starting on 10/14/16. He reports for the last month he has not eaten any solid foods 2/2 nausea and vomiting and has only drank juice and vodka. The patient states today he is feeling shaky and decided to come to the ED. He denies any visual symptoms, seizures, headache, syncope, trauma, lower extremity weakness, urinary symptoms. He is on gabapentin 600 mg tid and Morphine sulfate ; he denies any other drug abuse . 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 Has had at least 2 bandings since then), GERD, Pancreatitis Hepatobiliary: Yes: Cirrhosis (d/t alcohol now with suspected hepatocellular carcinoma), Cholelithiasis Musculoskeletal: Yes: Other (arthralgias) Endocrine: Yes: Diabetes Mellitus, Hypothyroidism - Past Surgical History Past Surgical History: Yes: None, Upper Endoscopy (w/ banding of esoph varices at [facility] 2 mos ago) - Alcohol/Substance Use Hx Alcohol Use: Yes (daily vodka, last yesterday AM) History of Substance Use: reports: None - Smoking History Smoking history: Current some day smoker Have you smoked in the past 12 months: Yes Aproximately how many cigarettes per day: 4 If you are a former smoker, when did you quit?: 3 mo ago, when I stop drinking alcohol I start smoking - Social History Usual Living Arrangement: With Parent ADL: Independent 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 Home Medications - Allergies Allergies/Adverse Reactions: Allergies Allergy/AdvReac Type Severity Reaction Status Date / Time No Known Allergies Allergy Verified 12/24/16 12:57 - Home Medications Home Medications: Ambulatory Orders Amitriptyline HCl [Elavil -] 25 mg PO HS tablet 05/04/16 Folic Acid - 1 mg PO DAILY tablet 05/04/16 Gabapentin [Neurontin -] 600 mg PO TID capsule 05/04/16 Levothyroxine [Synthroid -] 25 mcg PO DAILY@0700 tablet 05/04/16 Nadolol [Corgard -] 20 mg PO DAILY tablet 05/04/16 Pantoprazole Sodium [Protonix -] 40 mg PO DAILY tablet.ec 05/04/16 Metformin HCl [Metformin HCl ER] 500 mg PO HS 12/24/16 Oxycodone HCl 5 mg PO ASDIR PRN 12/24/16 Family Disease History - Family Disease History Family Disease History: Diabetes: Father (alcohol), Other: Father, Mother (htn) , Brother (alcohol) Review of Systems - Review of Systems Constitutional: reports: Loss of Appetite, Other (All 14 organs reviewed and negative beside HPI.) Physical Exam-Neuro Vital Signs: Vital Signs Temperature 99.5 F 12/26/16 14:05 Pulse Rate 94 H 12/26/16 14:05 Respiratory Rate 18 12/26/16 14:05 Blood Pressure 143/87 12/26/16 14:05 O2 Sat by Pulse Oximetry (%) 94 L 12/26/16 09:00 Constitutional: Yes: Calm, Cachectic Neck: Yes: Supple Cardiovascular: Yes: WNL Respiratory: Yes: WNL, CTA Bilaterally Musculoskeletal: Yes: WNL Edema: No Labs: CBCD WBC 3.8 K/mm3 (4.0-10.0) L 12/26/16 06:47 RBC 3.23 M/mm3 (4.00-5.60) L 12/26/16 06:47 Hgb 12.1 GM/dL (11.7-16.9) 12/26/16 06:47 Hct 34.8 % (35.4-49) L 12/26/16 06:47 MCV 107.6 fl (80-96) H 12/26/16 06:47 MCHC 34.9 g/dl (32.0-35.9) 12/26/16 06:47 RDW 14.6 % (11.9-15.9) 12/26/16 06:47 Plt Count 34 K/MM3 (134-434) L* D 12/26/16 06:47 MPV 9.0 fl (7.5-11.1) 12/26/16 06:47 CMP Sodium 139 mmol/L (136-145) 12/26/16 06:47 Potassium 3.8 mmol/L (3.5-5.1) 12/26/16 06:47 Chloride 99 mmol/L (98-107) 12/26/16 06:47 Carbon Dioxide 28 mmol/L (21-32) 12/26/16 06:47 Anion Gap 12 (8-16) 12/26/16 06:47 BUN 10 mg/dL (7-18) 12/26/16 06:47 Creatinine 1.0 mg/dL (0.7-1.3) D 12/26/16 06:47 Creat Clearance w eGFR > 60 (>60) 12/26/16 06:47 Calcium 8.8 mg/dL (8.5-10.1) 12/26/16 06:47 Total Bilirubin 11.4 mg/dL (0.2-1.0) H D 12/26/16 06:47 AST 348 U/L (15-37) H 12/26/16 06:47 ALT 68 U/L (12-78) 12/26/16 06:47 Alkaline Phosphatase 257 U/L (45-117) H 12/26/16 06:47 Total Protein 7.7 g/dl (6.4-8.2) 12/26/16 06:47 Albumin 3.5 g/dl (3.4-5.0) 12/26/16 06:47 - Neuro Exam Level Of Consciousness: Yes: Oriented to Person, Oriented to Place, Oriented to Time Eyes: Yes: PERRLA (Mildly dialted b/l but symmetric.) Speech: WNL Cranial Nerves II-XII Intact: Yes Gag: Present DTR's: 1+ Left Bicep, 1+ Right Bicep, 1+ Left Tricep, 1+ Right Tricep, 1+ Left Brachioradialis, 1+ Right Brachioradialis, 1+ Left Achilles, 1+ Right Achilles Babinski: Absent Response to light touch: Normal Coordination: Normal: Finger to Nose, Heel to [place] Motor Strength: 4/5: Left Arm, Right Arm, Left Leg, Right Leg (Mild difuse weakness), no asterixis Gait: Other (Imbalance , tandem gait impaired, romberg -ve ; . ) NIH Stroke Scale - Total Score NIH Stroke Scale Score: 0 Assessment/Plan 36 y/o w h/o heavy alcohol abuser, Alcoholic cirrhosis , DM, p/w gait dysfunction , nausea and vomiting and gait dysfunction . Gait dysfunction due to alcoholic/ diabetic neuropathy +/- chronic cerbellar disease from ETOH; no evidence of stroke, bleed Alcohol withdrawal , watch for DT ; Thrombocytopenia ; b12 wnl -MRI/A brain --small vessel white matter changes - DT protocol -C/w Thiamine, B12 -GI-fu Dr Lobato [phone]
[2016-12-26] MEDS: AMITRIPTYLINE HCL 25 MG TABLET (FP) PO SCH (21:48)
[2016-12-27] MEDS ORDERED: oxyCODONE HCL 5 MG TABLET PO ONE (03:50)
[2016-12-27] MEDS: chlordiazePOXIDE 5 MG CAPSULE PO SCH ×2 (04:59→10:47)
[2016-12-27] MEDS: GABAPENTIN 300 MG CAPSULE (FP) PO SCH ×2 (05:14→14:55)
[2016-12-27] MEDS: LEVOTHYROXINE NA 25 MCG TABLET (FP) PO SCH (06:24)
[2016-12-27 08:46] LABS: ALBUMIN 3.1 g/dl (3.4-5.0); ALK PHOS 215 U/L (45-117); ANION GAP 13 (8-16); BILIRUBIN,TOTAL 11.2 mg/dL (0.2-1.0); CALCIUM 8.5 mg/dL (8.5-10.1); CO2 23 mmol/L (21-32); COCKROFT - GAULT 113.55; CREATININE 0.8 mg/dL (0.7-1.3); GLUCOSE,RANDOM 132 mg/dL (74-106); SGOT/AST 240 U/L (15-37); SGPT/ALT 52 U/L (12-78); TOT PROT 6.8 g/dl (6.4-8.2)
[2016-12-27] MEDS ORDERED: LACTULOSE 20 GM/30 ML UDC (FOR ORAL USE ONLY) PO PRN (09:40)
[2016-12-27] MEDS ORDERED: PT OWN MED DRAWER 7, Y5N ONE ×4 (10:41→16:11)
[2016-12-27] MEDS: NADOLOL 20 MG TABLET (FP) PO SCH (10:46)
[2016-12-27] MEDS: FOLIC ACID 1 MG TABLET (FP) PO SCH (10:47)
[2016-12-27] MEDS: PANTOPRAZOLE 40 MG TABLET (FP) PO SCH (10:47)
[2016-12-27] MEDS: THIAMINE HCL 100 MG TABLET (FP) PO SCH (10:47)
--- NOTE | 2016-12-27 12:28 | PN ---
GI Progress Note Subjective: No acute events Lethargic however he is on librium - Objective Vital Signs: Vital Signs Temperature 99.8 F H 12/27/16 09:00 Pulse Rate 100 H 12/27/16 09:00 Respiratory Rate 18 12/27/16 09:00 Blood Pressure 103/65 12/27/16 09:00 O2 Sat by Pulse Oximetry (%) 94 L 12/26/16 09:00 Constitutional: Calm Eyes: Yes: Sclera Icterus Cardiovascular: Yes: Regular Rate and Rhythm Respiratory: Yes: Diminished (at bases with poor inspiratory effort) ...Auscultate: Yes: Normoactive Bowel Sounds ...Palpate: Yes: Tenderness (mild TTP RUQ) ...Percussion: No: Tympanitic Edema: No Neurological: Yes: Alert, Oriented (to person, partially to place and time). No : Asterixis Labs: CBC, BMP 12/26/16 06:47 12/27/16 06:30 INR, PTT INR 1.46 (0.82-1.09) H 12/26/16 06:47 Hepatic Panel Total Bilirubin 11.2 mg/dL (0.2-1.0) H 12/27/16 06:30 Direct Bilirubin 7.7 mg/dL (0.0-0.2) H D 12/26/16 06:47 AST 240 U/L (15-37) H D 12/27/16 06:30 ALT 52 U/L (12-78) D 12/27/16 06:30 Alkaline Phosphatase 215 U/L (45-117) H 12/27/16 06:30 Albumin 3.1 g/dl (3.4-5.0) L 12/27/16 06:30 Hepatic Discriminant function: 29 Problem List - Problems (1) Alcoholic hepatitis with ascites Assessment/Plan: Non-compliant with prior treatment and with alcohol abstinence. Explained to patient that he is gravely ill and will likely from his liver disease with continued alcohol abuse. I urged alcohol cessation D/W CIVIL ENGINEERING INTERN Sgroe: Need information regarding his treatment course at [facility]. ? if they were concerned enough to treat for possible HCC. Mr. Estrada will also need follow-up as an outpatient: Aranging f/u at the [facility] liver clinic would be reasonable. Continue lactulose. Changed to 20g QID for now. titrate to 3-4 loose BM's per day Added rifaximin 550mg PO BId Aspiration precautions On librium Daily labs, ammonia Code(s): K70.11 - ALCOHOLIC HEPATITIS WITH ASCITES (2) Alcoholic hepatitis Code(s): K70.10 - ALCOHOLIC HEPATITIS WITHOUT ASCITES
--- NOTE | 2016-12-27 13:56 | PN ---
Progress Note (short form) - Note Progress Note: Subjective: The patient was seen and examined at the bedside, he reports feeling good today Current Medications Generic Name Dose Route Start Last Admin Trade Name Freq PRN Reason Stop Dose Admin Amitriptyline HCl 25 mg 12/24/16 22:00 12/26/16 21:48 Elavil - PO 25 mg HS ZEYNEP Administration Chlordiazepoxide HCl 25 mg 12/24/16 16:22 12/25/16 13:37 Librium - PO 12/27/16 16:21 25 mg Q4H PRN Administration WITHDRAWAL(CONT SUBST) Folic Acid 1 mg 12/25/16 10:00 12/27/16 10:47 Folic Acid - PO 1 mg DAILY ZEYNEP Administration Gabapentin 600 mg 12/24/16 22:00 12/27/16 05:14 Neurontin - PO 600 mg TID ZEYNEP Administration Lactulose 20 gm 12/27/16 14:00 Cephulac (Oral Use) PO QID ZEYNEP Levothyroxine Sodium 25 mcg 12/25/16 07:00 12/27/16 06:24 Synthroid - PO 25 mcg DAILY@0700 ZEYNEP Administration Lorazepam 1 mg 12/24/16 16:23 Ativan Injection - IVPUSH TID PRN WITHDRAWAL(CONT SUBST) Nadolol 20 mg 12/25/16 10:00 12/27/16 10:46 Corgard - PO 20 mg DAILY ZEYNEP Administration Pantoprazole Sodium 40 mg 12/25/16 10:00 12/27/16 10:47 Protonix - PO 40 mg DAILY ZEYNEP Administration Rifaximin 550 mg 12/27/16 12:30 Xifaxan - PO BID ZEYNEP Thiamine HCl 100 mg 12/25/16 10:00 12/27/16 10:47 Vitamin B1 - PO 100 mg DAILY ZEYNEP Administration Objective: Vital Signs Period Temp Pulse Resp BP Sys/Reich Pulse Ox Last 24 Hr 98.0 F-99.8 F 86-100 18-26 97-143/64-87 Physical Exam: GENERAL: Awake, alert, and fully oriented, in no acute distress. HEAD: Normal with no signs of trauma. EYES: Sclera icteric. Pupils equal, round and reactive to light, extraocular movements intact, conjunctiva clear. No lid lag. LUNGS: Breath sounds equal, clear to auscultation bilaterally. No wheezes, and no crackles. No accessory muscle use. HEART: Regular rate and rhythm, normal S1 and S2 without murmur, rub or gallop. ABDOMEN: Soft, epigastric and RUQ tenderness noted. Hepatomegaly noted with non- smooth surface. Non-distended, normoactive bowel sounds MUSCULOSKELETAL: Normal range of motion at all joints. No bony deformities or tenderness. No CVA tenderness. UPPER EXTREMITIES: Petichae noted on b/l upper extremities. 2+ pulses, warm, well-perfused. No cyanosis. No clubbing. No peripheral edema. LOWER EXTREMITIES: 2+ pulses, warm, well-perfused. No calf tenderness. No peripheral edema. NEUROLOGICAL: Tremors on full extension. Cranial nerves II-XII intact. Normal speech. Gait not observed PSYCHIATRIC: Cooperative. Good eye contact. Appropriate mood and affect. SKIN: Jaundice. Warm, dry, normal turgor, no rashes or lesions noted, normal capillary refill. CBCD WBC 3.8 K/mm3 (4.0-10.0) L 12/26/16 06:47 RBC 3.23 M/mm3 (4.00-5.60) L 12/26/16 06:47 Hgb 12.1 GM/dL (11.7-16.9) 12/26/16 06:47 Hct 34.8 % (35.4-49) L 12/26/16 06:47 MCV 107.6 fl (80-96) H 12/26/16 06:47 MCHC 34.9 g/dl (32.0-35.9) 12/26/16 06:47 RDW 14.6 % (11.9-15.9) 12/26/16 06:47 Plt Count 34 K/MM3 (134-434) L* D 12/26/16 06:47 MPV 9.0 fl (7.5-11.1) 12/26/16 06:47 CMP Sodium 138 mmol/L (136-145) 12/27/16 06:30 Potassium 3.8 mmol/L (3.5-5.1) 12/27/16 06:30 Chloride 102 mmol/L (98-107) 12/27/16 06:30 Carbon Dioxide 23 mmol/L (21-32) 12/27/16 06:30 Anion Gap 13 (8-16) 12/27/16 06:30 BUN 8 mg/dL (7-18) 12/27/16 06:30 Creatinine 0.8 mg/dL (0.7-1.3) 12/27/16 06:30 Creat Clearance w eGFR > 60 (>60) 12/27/16 06:30 Random Glucose 132 mg/dL (74-106) H D 12/27/16 06:30 Calcium 8.5 mg/dL (8.5-10.1) 12/27/16 06:30 Total Bilirubin 11.2 mg/dL (0.2-1.0) H 12/27/16 06:30 AST 240 U/L (15-37) H D 12/27/16 06:30 ALT 52 U/L (12-78) D 12/27/16 06:30 Alkaline Phosphatase 215 U/L (45-117) H 12/27/16 06:30 Total Protein 6.8 g/dl (6.4-8.2) 12/27/16 06:30 Albumin 3.1 g/dl (3.4-5.0) L 12/27/16 06:30 Imaging: Chest X-ray: No acute pathology Abdominal US: Cholelithiasis without sonographic evidence of acute cholecystitis. No biliary dilatation. Hepatic cirrhosis visualized. MRI brain: Few foci of small vessel infarction in the periventricular white matter. Right basal ganglia with a small porencephalic cysts of the lateral aspect of the bodies of the later ventricles MRA brain: Unremarkable MRA of the proximal arterial intracranial circulation MRCP: Cirrhotic liver, splenomegaly. No hapatoma noted. Mild to moderate left pleural effusion. Cholelithiasis with small amouth of pericholecystic fluid. No pancreaticobiliary ductal dilatation seen. Nonspecific heterogeneity of the pancreatic uncinate process but with no focal lesion or abnormal enhancement. Questionable short segmental thickening of the ascending colon. Assessment: This is a 36 year old male with PMHx of alcohol abuse, liver cirrhosis, pancreatitis, variceal bleed, GERD, type 2 DM, hypothyroidism, who presented to the ED with abdominal pain, nausea, vomiting x1 month. Plan: 1) GI: Acute alcoholic pancreatitis - Resolved - Tolerating diet well Liver cirrhosis - Continue Lactulose - Continue Rifaximin - Elevated INR - Severe thrombocytopenia, bleeding precautions, no signs of active bleeding - Transaminitis - Total bilirubin trending up - AFP 3.2 - Called and spoke to Lanny at Dr. Haja Edwards's office (liver specialist at [facility] who treated the patient after transfer 04/2016). Awaiting callback from MD to discuss workup - Discussed with Dr. Bennett who states patient will need close follow-up as outpatient with liver team 2) Psych: Acute alcohol withdrawal - Librium taper completed - Ativan prn for seizures, patient has hx of withdrawal seizures - Continue Thiamine - Continue folic acid 3) Endocrine: DM - BGM ACHS - Hgb A1c 4.9 Hypothyroidism - TSH 2.53 - Continue Synthroid 4) F/E/N: - Monitor electrolytes - Hypomagnesemia: resolved - Sodium controlled diet 5) Prophylaxis: - SCDs bilaterally - Hold all chemical dvt prophylaxis 2/2 severe thrombocyopenia - PT evaluation - Per neuro: gait disturbance 2/2 toxic/alcoholic/diabetic neuropathy and less likely cerebellar 6) Dispo: - Requires continued inpatient care CODE STATUS: FULL CODE Visit type - Emergency Visit Emergency Visit: Yes ED Registration Date: 12/24/16 Care time: The patient presented to the Emergency Department on the above date and was hospitalized for further evaluation of their emergent condition. - New Patient This patient is new to me today: No - Critical Care Critical Care patient: No
[2016-12-27] MEDS ORDERED: LACTULOSE 20 GM/30 ML UDC (FOR ORAL USE ONLY) PO SCH (14:00)
[2016-12-27] MEDS ORDERED: RIFAXIMIN 550 MG TABLET (UD) PO SCH (14:30)
[2016-12-27 15:47] VITALS: BP 112/74; PULSE 95; TEMP 98.6
--- NOTE | 2016-12-27 15:54 | DS ---
Physical Examination Vital Signs: Vital Signs Temperature 98.6 F 12/27/16 14:44 Pulse Rate 95 H 12/27/16 14:44 Respiratory Rate 20 12/27/16 14:44 Blood Pressure 112/74 12/27/16 14:44 O2 Sat by Pulse Oximetry (%) 94 L 12/26/16 09:00 Labs: CBC, BMP 12/26/16 06:47 12/27/16 06:30 Discharge Summary Reason For Visit: PANCREATITIS,NAUSEA,VOMITING Current Active Problems Alcohol intoxication (Acute) Alcoholic hepatitis (Acute) Alcoholic hepatitis with ascites (Acute) Ascites due to alcoholic cirrhosis (Acute) Esophageal varices determined by endoscopy (Acute) HCC (hepatocellular carcinoma) (Acute) Nausea & vomiting (Acute) Pancreatitis (Acute) Thrombocytopenia (Acute) Hospital Course: Spoke to Dr. Brooks at [facility] who states the patient was evaluated at [facility] in 04/2016 after being transferred from [facility]. He states the patient was found to have 2 hepatic lesions that were diagnostic for HCC. At the time, the patient was followed by social workers as he is not a citizen. He was working towards getting his [employer] so he could proceed with liver transplant. He had an outpatient endoscopy on 06/02/16 and had varices banding. After that, the patient was lost to follow-up. Per Dr. Brooks, the patient is not a current candidate for transplant as he is an active alcohol user. Therefore, Dr. Brooks will follow-up with the patient on January 05 at 1pm. Will send the patient home with copies of his MRIs while here. The patient is aware he will be bringing the MRI discs to his appointment with Dr. Raymond on January 05. Dr. Brooks recommended non-contrast CT abdomen to evaluate his liver lesions prior to discharge. The patient had declined any further testing. The patient has refused all rehab. Provided the patient with list of alcoholics anonymous. Condition: Improved - Instructions Diet, Activity, Other Instructions: Please return to the ED with new, persistent, or worsening symptoms. Please follow-up with providers as indicated. You MUST stop drinking all alcohol. Follow-up with your liver team at [facility]. You are being given CDs of all of your imaging while you were here. Please bring the CDs with you to your appointment with Dr. Raymond January [address] Raymond [address] [place], [place], [address] New medications: Lactulose Rifaximin Referrals: Dagmar Nichols MD [Staff Physician] - (Please follow-up with psychiatry within 1 week for further mangagement of your depression) Pearl Veliz MD [Primary Care Provider] - (Please follow-up with your pcp within 2-3 days) Disposition: HOME - Home Medications Comprehensive Discharge Medication List: Ambulatory Orders Amitriptyline HCl [Elavil -] 25 mg PO HS tablet 05/04/16 Folic Acid - 1 mg PO DAILY tablet 05/04/16 Gabapentin [Neurontin -] 600 mg PO TID capsule 05/04/16 Levothyroxine [Synthroid -] 25 mcg PO DAILY@0700 tablet 05/04/16 Nadolol [Corgard -] 20 mg PO DAILY tablet 05/04/16 Pantoprazole Sodium [Protonix -] 40 mg PO DAILY tablet.ec 05/04/16 Oxycodone HCl 5 mg PO ASDIR PRN 12/24/16 Lactulose (Oral Use) [Cephulac -] 20 gm PO QID #120 dose 12/27/16 Rifaximin [Xifaxan -] 550 mg PO BID #60 tablet 12/27/16 Thiamine HCl [Vitamin B1 -] 100 mg PO DAILY #30 tablet 12/27/16
== END 2016-12-27 16:30 | disposition home or self-care (01) | DRG 281 ==
LOC: JER 12:54 → JERBED 15:37 → J5S 18:14
PROVIDERS: ADMIT Internal Medicine; ATTEND Registered Nurse
PROC: HZ2ZZZZ Detoxification Services for Substance Abuse Treatment (ICD-10-PCS; principal; 2016-12-24)
DX: C22.0 Liver cell carcinoma (principal); K85.20 Alcohol induced acute pancreatitis without necrosis or infection; F10.239 Alcohol dependence with withdrawal, unspecified; D69.6 Thrombocytopenia, unspecified; E11.9 Type 2 diabetes mellitus without complications; F10.229 Alcohol dependence with intoxication, unspecified; K70.31 Alcoholic cirrhosis of liver with ascites; R11.2 Nausea with vomiting, unspecified; E83.42 Hypomagnesemia; K70.11 Alcoholic hepatitis with ascites; K21.9 Gastro-esophageal reflux disease without esophagitis; E03.9 Hypothyroidism, unspecified; Z72.0 Tobacco use; D68.9 Coagulation defect, unspecified; Z68.21 Body mass index [BMI] 21.0-21.9, adult; R64 Cachexia; I85.00 Esophageal varices without bleeding
CPT/HCPCS: 36415; 70544-TC; 70547-TC; 70551-TC; 71010-TC; 74182-TC; 76705-TC; 80053; 80307; 81003; 81015; 82105; 82140; 82248; 82607; 83036; 83690; 83735; 84100; 84443; 85025; 85044; 85610; 86140; 97116-GP; 97162-PG; 99282-25; A9576